=== PATIENT | female | born 1995 | race Caucasian/White ===

== ENCOUNTER → 2017-07-27 | Outpatient (CLI) | payer OTHER | LOC: CIMAGING 08:25 | PROVIDERS: ATTEND Physician Assistant | DX: K76.0 Fatty (change of) liver, not elsewhere classified (principal); R16.0 Hepatomegaly, not elsewhere classified; R16.1 Splenomegaly, not elsewhere classified | CPT/HCPCS: 76700-PO ==

== ENCOUNTER 2017-08-08 22:31 | Emergency (ER) | payer OTHER ==
--- NOTE | 2017-08-08 23:03 | EDPHY ---
H & P Time Seen by Provider: 08/08/17 22:55 HPI/ROS: CC: Abdominal pain HPI: This 21-year-old female with past medical history of depression and anxiety presents to emergency department today complaining of lower abdominal pain that started this morning. About 40 min ago she had a sharp pain that she rated 9/10 in her right lower quadrant. It was worse with movement and when she went over bumps in her car on the way here to the emergency department. The pain is still 8/10. She does not think she had a fever but felt hot and had chills earlier this evening. She has some mild nausea. She denies dysuria , constipation, diarrhea. She has not been ill recently. She had a desirae IUD placed May 30, 2017. She had an ultrasound and the [facility] office that showed the IUD is in good place. She also had a pelvic exam on July 11, 2017 which was positive for Gardnerella and she was treated with clindamycin. She also had an abdominal ultrasound last month which was unremarkable except for a slightly enlarged spleen and fatty liver. She states she gets abdominal cramping when she eats and she is scheduled for a colonoscopy and upper endoscopy in 2 weeks. She is currently spotting but states her regular last menstrual period was early May. REVIEW OF SYSTEMS: Constitutional: No fever. Eyes: No discharge. ENT: No sore throat. Respiratory: No cough, no shortness of breath. Cardiac: No chest pain, no palpitations. Gastrointestinal: SEE HPI. Genitourinary: No dysuria. Musculoskeletal: h/o herniated disc. Skin: No rashes. Neurological: No headache. Past Medical/Surgical History: Past medical history: Depression, anxiety Past surgical history: Right knee surgery x2, tonsillectomy, wisdom teeth, IUD Family history: Mother and father are both in good health; sister had a hemorrhagic ovarian cyst No known drug allergies Medications include Abilify, Zoloft, dicyclomine She states she does not have a primary care provider but she sees Becky at the [facility] and her PA at of the [facility] is Johana Avila Social History: She denies tobacco products, alcohol use or marijuana Smoking Status: Never smoked Physical Exam: General Appearance: Alert, mild distress. Eyes: Pupils equal and round no pallor or injection. ENT, Mouth: Mucous membranes are moist. Respiratory: There are no retractions, lungs are clear to auscultation. Cardiovascular: Regular rate and rhythm, no murmurs, gallops or rubs. Gastrointestinal: Abdomen is diffusely tender with increased discomfort to palpation in the RLQ. +Rebound, no guarding or rigidity. Normal BS. Neurological: Awake and alert, sensory and motor exams grossly normal. Skin: Warm and dry, no rashes. Musculoskeletal: Neck is supple nontender. Extremities are symmetrical, full range of motion. No calf tenderness, swelling or edema. Psychiatric: Patient is oriented X 3, there is no agitation. DIFFERENTIAL DIAGNOSIS: After history and physical exam differential diagnosis was considered for but not limited to: [Appendicitis, ovarian cyst, ovarian torsion, effects from the Mirena IUD, UTI, menstrual cramping.] Constitutional: Initial Vital Signs Temperature (C) 97.7 F 08/08/17 23:08 Heart Rate 76 08/08/17 23:08 Respiratory Rate 16 08/08/17 23:08 Blood Pressure 142/75 H 08/08/17 23:08 O2 Sat (%) 98 08/08/17 23:08 O2 Delivery Mode Room Air Allergies/Adverse Reactions: No Known Allergies Allergy (Unverified 08/08/17 23:06) Home Medications: Medication Instructions Recorded Concerta 18 mg 01/31/14 Abilify 08/08/17 Dicyclomine 08/08/17 Zoloft 100mg (*) 08/08/17 Medical Decision Making - Diagnostics Imaging Results: Imaging Impressions Abdomen CT 08/08/17 23:22 Impression: Normal CT of the abdomen and pelvis with contrast. IUD in place. I telephoned results to Dr. Tia Rucker at [address] of Abdomen and Pelvis per radiologist, Dr. Jin Barnett, verbal report. Imaging: Discussed imaging studies w/ director call Radiologist ED Course/Re-evaluation: The patient was seen and examined, vital signs reviewed. CBC showed a very minimally elevated white blood cell count. Chemistry normal. Urinalysis was slightly contaminated but negative for nitrates and leukocyte esterase. She received Toradol 15 mg IV push with some relief of her discomfort. Her CT of abdomen and pelvis with contrast was negative. The patient had a pelvic exam less than a month ago as well as an ultrasound in the [facility] which revealed the IUD to be in good place as well as Gardnerella for which the patient was treated. Therefore a pelvic exam was not done this evening. I will [facility] or return to the emergency room sooner if symptoms worsen. - Data Points Laboratory Results: Laboratory Results 08/08/17 23:05 08/08/17 23:05 08/08/17 08/08/17 08/08/17 23:05 23:05 23:05 WBC RBC Hgb Hct MCV MCH MCHC RDW Plt Count MPV Neut % (Auto) Lymph % (Auto) [place] % (Auto) Eos % (Auto) Baso % (Auto) Nucleat RBC Rel Count Absolute Neuts (auto) Absolute Lymphs (auto) Absolute Monos (auto) Absolute Eos (auto) Absolute Basos (auto) Absolute Nucleated RBC Immature Gran % Immature Gran # Sodium 143 mEq/L mEq/L (134-144) Potassium 3.8 mEq/L mEq/L (3.5-5.2) Chloride 103 mEq/L mEq/L (97-110) Carbon Dioxide 23 mEq/l mEq/l (22-31) Anion Gap 17 mEq/L H mEq/L (8-16) BUN 11 mg/dL mg/dL (7-23) Creatinine 0.7 mg/dL mg/dL (0.6-1.0) Estimated GFR > 60 Glucose 104 mg/dL H mg/dL (70-100) Calcium 9.3 mg/dL mg/dL (8.5-10.4) Total Bilirubin 0.3 mg/dL mg/dL (0.1-1.4) Conjugated Bilirubin 0.1 mg/dL mg/dL (0.0-0.5) Unconjugated Bilirubin 0.2 mg/dL mg/dL (0.0-1.1) AST 19 IU/L IU/L (14-46) ALT 29 IU/L IU/L (9-52) Alkaline Phosphatase 116 IU/L IU/L (38-126) Total Protein 7.8 g/dL g/dL (6.3-8.2) Albumin 4.2 g/dL g/dL (3.5-5.0) Lipase 120 IU/L IU/L (23-300) Beta HCG, Qual NEGATIVE Urine Color YELLOW Urine Appearance CLEAR Urine pH 6.5 (5.0-7.5) Ur Specific [place] 1.020 (1.002-1.030) Urine Protein NEGATIVE (NEGATIVE) Urine Ketones NEGATIVE (NEGATIVE) Urine Blood TRACE H (NEGATIVE) Urine Nitrate NEGATIVE (NEGATIVE) Urine Bilirubin NEGATIVE (NEGATIVE) Urine Urobilinogen 0.2 EU EU (0.2-1.0) Ur Leukocyte Esterase NEGATIVE (NEGATIVE) Urine RBC 1-3 /hpf /hpf (0-3) Urine WBC 1-3 /hpf /hpf (0-3) Ur Epithelial Cells 1+ /lpf /lpf (NONE-1+) Urine Bacteria 2+ /hpf H /hpf (NONE SEEN) Urine Mucus 1+ /lpf /lpf (NONE-1+) Urine Glucose NEGATIVE (NEGATIVE) 08/08/17 23:05 WBC 10.01 10^3/uL H 10^3/uL (3.80-9.50) RBC 5.18 10^6/uL 10^6/uL (4.18-5.33) Hgb 13.0 g/dL g/dL (12.6-16.3) Hct 41.2 % % (38.0-47.0) MCV 79.5 fL L fL (81.5-99.8) MCH 25.1 pg L pg (27.9-34.1) MCHC 31.6 g/dL L g/dL (32.4-36.7) RDW 14.0 % % (11.5-15.2) Plt Count 321 10^3/uL 10^3/uL (150-400) MPV 9.3 fL fL (8.7-11.7) Neut % (Auto) 60.6 % % (39.3-74.2) Lymph % (Auto) 30.0 % % (15.0-45.0) [place] % (Auto) 6.5 % % (4.5-13.0) Eos % (Auto) 2.3 % % (0.6-7.6) Baso % (Auto) 0.4 % % (0.3-1.7) Nucleat RBC Rel Count 0.0 % % (0.0-0.2) Absolute Neuts (auto) 6.07 10^3/uL 10^3/uL (1.70-6.50) Absolute Lymphs (auto) 3.00 10^3/uL 10^3/uL (1.00-3.00) Absolute Monos (auto) 0.65 10^3/uL 10^3/uL (0.30-0.80) Absolute Eos (auto) 0.23 10^3/uL 10^3/uL (0.03-0.40) Absolute Basos (auto) 0.04 10^3/uL 10^3/uL (0.02-0.10) Absolute Nucleated RBC 0.00 10^3/uL 10^3/uL (0-0.01) Immature Gran % 0.2 % % (0.0-1.1) Immature Gran # 0.02 10^3/uL 10^3/uL (0.00-0.10) Sodium Potassium Chloride Carbon Dioxide Anion Gap BUN Creatinine Estimated GFR Glucose Calcium Total Bilirubin Conjugated Bilirubin Unconjugated Bilirubin AST ALT Alkaline Phosphatase Total Protein Albumin Lipase Beta HCG, Qual Urine Color Urine Appearance Urine pH Ur Specific [place] Urine Protein Urine Ketones Urine Blood Urine Nitrate Urine Bilirubin Urine Urobilinogen Ur Leukocyte Esterase Urine RBC Urine WBC Ur Epithelial Cells Urine Bacteria Urine Mucus Urine Glucose Medications Given: Discontinued Medications Ketorolac Tromethamine (Toradol) 15 mg IVP EDNOW ONE Stop: 08/08/17 23:28 Last Admin: 08/08/17 23:31 Dose: 15 mg Departure - Departure Disposition: Home, Routine, Self-Care Clinical Impression: Abdominal pain Condition: Good Instructions: Levonorgestrel (Into the uterus), Acute Abdominal Pain (ED), Ondansetron (By mouth) Additional Instructions: Continue ibuprofen as needed for pain. Call in the morning to make a follow-up appointment with your provider at the [facility]. Return to the emergency room if fever, vomiting, increased pain or any other concerns. Referrals: NONE *PRIMARY CARE P,. [Primary Care Provider] - As per Instructions
[2017-08-08 23:09] LABS: PLATELET COUNT 321 10^3/uL (150-400)
[2017-08-08 23:14] VITALS: PULSE 76; TEMP 97.7
[2017-08-08] MEDS ORDERED: KETOROLAC 15 MG/1 ML SDV IVP ONE (23:27)
[2017-08-08] MEDS ORDERED: IOPAMIDOL (ISOVUE-300) 100 ML BTL ONE (23:29)
[2017-08-09] MEDS ORDERED: ONDANSETRON 4MG PREPACK#2 BTL TAKEHOME ONE (00:11)
[2017-08-12 16:52] VITALS: BP 132/65; RESP 14; O2SAT 94
== END 2017-08-09 00:27 | disposition home or self-care (01) ==
LOC: CED 22:31
DX: R10.31 Right lower quadrant pain (principal); E86.9 Volume depletion, unspecified
CPT/HCPCS: 74177-PO; 80048-PO; 80076-PO; 81003-PO; 81015-PO; 83690-PO; 84703-PO; 85025-PO; 96374; J1885; Q9967